=== PATIENT | female | born 1940 | race Caucasian/White ===

== ENCOUNTER 2018-02-28 12:44 | Emergency (ER) | payer MEDICARE, OTHER ==
[2018-02-28] MEDS: SOD CHLORIDE 0.9% 1,000 ML IV (13:06)
[2018-02-28] MEDS: ONDANSETRON 4 MG INJ IV (13:07)
[2018-02-28 13:15] LABS: ADD MAN DIFF? NO
[2018-02-28 13:25] LABS: WHITE BLOOD COUNT 8.5 10^3/ul (4.8-10.8)
[2018-02-28 13:25] LABS: BASOPHILS % 0.4 % (0.0-2.0); EOSINOPHILS # 0.2 10^3/ul (0.0-0.5); EOSINOPHILS % 2.5 % (0.0-7.0); HEMATOCRIT 39.4 % (37.0-47.0); HEMOGLOBIN 12.5 g/dl (12.0-16.0); LYMPHOCYTES % 23.9 % (15.0-51.0); MEAN CORPUSCULAR HGB CONC 31.7 g/dl (32.0-37.0); MEAN CORPUSCULAR VOLUME 100.8 fl (82.0-101.0); MEAN PLATELET VOLUME 9.1 fl (7.4-10.4); MONOCYTE # 0.6 10^3/ul (0.3-0.9); MONOCYTES % 6.9 % (0.0-11.0); NEUTROPHIL # 5.6 10^3/ul (1.6-7.5); NEUTROPHILS % 66.1 % (39.0-77.0); PLATELET COUNT 263 10^3/UL (140-415); RED BLOOD COUNT 3.91 10^6/ul (4.20-5.40); RED CELL DISTRIBUTION WIDTH 13.2 % (11.5-14.5)
[2018-02-28 13:50] LABS: ALANINE AMINOTRANSFERASE 24 IU/L (13-69); ALBUMIN 3.8 g/dl (3.3-4.9); ALBUMIN/GLOBULIN RATIO 1.46; ALKALINE PHOSPHATASE 81 IU/L (42-121); ANION GAP 11 (8-16); ASPARTATE AMINO TRANSFERASE 24 IU/L (15-46); BILIRUBIN,INDIRECT 0.5 mg/dl (0-1.1); BILIRUBIN,TOTAL 0.5 mg/dl (0.2-1.3); BLOOD UREA NITROGEN 31 mg/dl (7-20); CALCIUM 9.1 mg/dl (8.4-10.2); CARBON DIOXIDE 35 mmol/L (21-31); CHLORIDE 99 mmol/L (97-110); CREATININE 0.77 mg/dl (0.44-1.00); GLUCOSE 138 mg/dl (70-220); LIPASE 168 U/L (23-300); POTASSIUM 4.2 mmol/L (3.5-5.1); SODIUM 141 mmol/L (135-144); TOTAL PROTEIN 6.4 g/dl (6.1-8.1)
[2018-02-28 13:53] LABS: ADD UMIC NO; UR ASCORBIC ACID NEGATIVE (NEGATIVE); UR BILIRUBIN (Dip) NEGATIVE (NEGATIVE); UR BLOOD (Dip) NEGATIVE (NEGATIVE); UR CLARITY CLEAR (CLEAR); UR COLOR YELLOW (YELLOW); UR GLUCOSE (Dip) NEGATIVE (NEGATIVE); UR KETONES (Dip) NEGATIVE (NEGATIVE); UR LEUKOCYTE ESTERASE (Dip) NEGATIVE Leu/ul (NEGATIVE); UR NITRITE (Dip) NEGATIVE (NEGATIVE); UR SPECIFIC GRAVITY (Dip) 1.013 (1.003-1.030); UR TOTAL PROTEIN (Dip) NEGATIVE (NEGATIVE); UR UROBILINOGEN (Dip) NEGATIVE (NEGATIVE)
[2018-02-28 14:02] LABS: TROPONIN-I < 0.012 ng/ml (0.000-0.120)
[2018-02-28 14:13] LABS: AMPHETAMINE/METHAMPHETAMINE Negative (NEGATIVE); BARBITURATES Negative (NEGATIVE); CANNABINOIDS Negative (NEGATIVE); COCAINE Negative (NEGATIVE); OPIATES Positive (NEGATIVE)
[2018-02-28 14:23] LABS: BENZODIAZEPINES Positive (NEGATIVE)
[2018-02-28] MEDS: LORAZEPAM 2 MG INJ IV (15:36)
== END 2018-02-28 15:44 | disposition home or self-care (01) ==
LOC: E/R 15:44
DX: T50.7X1A Poisoning by analeptics and opioid receptor antagonists, accidental (unintentional), initial encounter (principal); I10 Essential (primary) hypertension; J44.9 Chronic obstructive pulmonary disease, unspecified; R41.82 Altered mental status, unspecified; Z87.891 Personal history of nicotine dependence; Z96.652 Presence of left artificial knee joint
CPT/HCPCS: 36415; 70450; 71045; 80053; 80307; 81003; 83690; 84484; 85025; 93005; 96374; 96375; 99285-25

== ENCOUNTER 2019-03-14 18:40 | Emergency (ER) | payer MEDICARE, OTHER ==
[2019-03-14] MEDS: KETOROLAC 15 MG INJ IM (19:56)
[2019-03-14] MEDS: ONDANSETRON (ODT) 4 MG TAB ODT (21:39)
[2019-03-14 22:09] LABS: ADD MAN DIFF? NO
[2019-03-14 22:11] LABS: WHITE BLOOD COUNT 12.6 10^3/ul (4.8-10.8)
[2019-03-14 22:11] LABS: BASOPHIL # 0.1 10^3/ul (0.0-0.1); BASOPHILS % 0.5 % (0.0-2.0); EOSINOPHILS # 0.2 10^3/ul (0.0-0.5); EOSINOPHILS % 1.8 % (0.0-7.0); HEMATOCRIT 39.3 % (37.0-47.0); HEMOGLOBIN 12.3 g/dl (12.0-16.0); LYMPHOCYTES % 23.9 % (15.0-51.0); MEAN CORPUSCULAR HEMOGLOBIN 30.4 pg (29.0-33.0); MEAN CORPUSCULAR HGB CONC 31.3 g/dl (32.0-37.0); MEAN CORPUSCULAR VOLUME 97.3 fl (82.0-101.0); MEAN PLATELET VOLUME 8.9 fl (7.4-10.4); MONOCYTE # 0.9 10^3/ul (0.3-0.9); MONOCYTES % 6.8 % (0.0-11.0); NEUTROPHIL # 8.4 10^3/ul (1.6-7.5); NEUTROPHILS % 66.5 % (39.0-77.0); PLATELET COUNT 292 10^3/UL (140-415); RED BLOOD COUNT 4.04 10^6/ul (4.20-5.40); RED CELL DISTRIBUTION WIDTH 12.6 % (11.5-14.5)
[2019-03-14 22:29] LABS: ALANINE AMINOTRANSFERASE 22 IU/L (13-69); ALBUMIN 4.3 g/dl (3.3-4.9); ALBUMIN/GLOBULIN RATIO 1.43; ALKALINE PHOSPHATASE 86 IU/L (42-121); ANION GAP 7 (5-13); ASPARTATE AMINO TRANSFERASE 21 IU/L (15-46); BILIRUBIN,INDIRECT 0.9 mg/dl (0-1.1); BILIRUBIN,TOTAL 0.9 mg/dl (0.2-1.3); BLOOD UREA NITROGEN 17 mg/dl (7-20); CALCIUM 9.7 mg/dl (8.4-10.2); CARBON DIOXIDE 38 mmol/L (21-31); CHLORIDE 91 mmol/L (97-110); CREATININE 0.64 mg/dl (0.44-1.00); GLUCOSE 134 mg/dl (70-220); POTASSIUM 3.7 mmol/L (3.5-5.1); SODIUM 136 mmol/L (135-144); TOTAL PROTEIN 7.3 g/dl (6.1-8.1)
[2019-03-14 22:30] LABS: ACETAMINOPHEN < 10.0 ug/ml (10.0-30.0); ETHANOL < 10.0 mg/dl (0-0); SALICYLATE < 1.0 mg/dl (5.0-30.0)
[2019-03-15] MEDS: ONDANSETRON 4 MG TAB PO (01:48)
[2019-03-15] MEDS: ONDANSETRON (ODT) 4 MG TAB ODT ×2 (02:14→07:06)
[2019-03-15 04:27] LABS: ADD UMIC YES; UR ASCORBIC ACID NEGATIVE (NEGATIVE); UR BILIRUBIN (Dip) NEGATIVE (NEGATIVE); UR BLOOD (Dip) NEGATIVE (NEGATIVE); UR CLARITY CLEAR (CLEAR); UR COLOR YELLOW (YELLOW); UR GLUCOSE (Dip) NEGATIVE (NEGATIVE); UR KETONES (Dip) NEGATIVE (NEGATIVE); UR LEUKOCYTE ESTERASE (Dip) 1+ Leu/ul (NEGATIVE); UR MUCUS FEW /HPF (NONE SEEN); UR NITRITE (Dip) NEGATIVE (NEGATIVE); UR RBC 1 /HPF (0-5); UR SPECIFIC GRAVITY (Dip) 1.015 (1.003-1.030); UR SQUAMOUS EPITHELIAL CELL FEW /HPF (FEW); UR TOTAL PROTEIN (Dip) NEGATIVE (NEGATIVE); UR UROBILINOGEN (Dip) NEGATIVE (NEGATIVE); UR WBC 6 /HPF (0-5)
[2019-03-15 04:38] LABS: AMPHETAMINE/METHAMPHETAMINE Negative (NEGATIVE); BARBITURATES Negative (NEGATIVE); CANNABINOIDS Negative (NEGATIVE); COCAINE Negative (NEGATIVE); OPIATES Positive (NEGATIVE)
[2019-03-15 04:39] LABS: BENZODIAZEPINES Positive (NEGATIVE)
[2019-03-15] MEDS ORDERED: ALBUTEROL HFA 8 GM INHALER INH (07:00)
[2019-03-15] MEDS: PANTOPRAZOLE (EC) 40 MG TAB PO (07:06)
[2019-03-15] MEDS: PAROXETINE 20 MG TAB PO (09:23)
[2019-03-15] MEDS: HYDROCHLOROTHIAZIDE 25 MG TAB PO (09:24)
[2019-03-15] MEDS: LOSARTAN 50 MG TAB PO (09:25)
[2019-03-15] MEDS: [UNRECOGNIZED DRUG - OTHER] PO (10:11)
[2019-03-15] MEDS ORDERED: PROPRANOLOL 40 MG TAB PO (18:00)
[2019-03-15] MEDS ORDERED: AMLODIPINE 2.5 MG TAB PO (21:00)
[2019-03-15] MEDS ORDERED: MIRTAZAPINE 15 MG TAB PO (21:00)
== END 2019-03-15 14:45 | disposition home or self-care (01) ==
LOC: E/R 18:40
DX: M47.812 Spondylosis without myelopathy or radiculopathy, cervical region (principal); M79.7 Fibromyalgia; F32.9 Major depressive disorder, single episode, unspecified; F41.9 Anxiety disorder, unspecified; I10 Essential (primary) hypertension; J44.9 Chronic obstructive pulmonary disease, unspecified; Z96.652 Presence of left artificial knee joint; Z87.891 Personal history of nicotine dependence
CPT/HCPCS: 72125; 80053; 80307; 81001; 85025; 96372; 99285-25